=== PATIENT | male | born 1995 | race African-American/Black ===

== ENCOUNTER 2019-04-16 11:48 | Emergency (ER) | payer OTHER ==
[~2019-04-16] VITALS: Ht 170.2 cm; Wt 63.6 kg
[~2019-04-16 11:48] MED LIST: CLEOCIN HCL300 MG PO; VOLTAREN75 MG PO
[2019-04-16 13:03] VITALS: BP 110/62; Ht 170.2 cm; Wt 63.6 kg
== END 2019-04-16 14:06 | disposition left against medical advice (07) ==
LOC: D.ER 11:48
DX: R52 Pain, unspecified (principal)